=== PATIENT | male | born 1990 | race Caucasian/White ===

== ENCOUNTER 2017-10-23 22:46 | Emergency (ER) | payer SELFPAY ==
[~2017-10-23] VITALS: Ht 175.3 cm; Wt 55.2 kg
[2017-10-23 23:17] LABS: CHLORIDE 105 mEq/L (99-109); POTASSIUM 3.9 mEq/L (3.7-5.4); SODIUM 143 mEq/L (136-147)
[2017-10-23 23:19] LABS: GLUCOSE 109 mg/dL (70-99)
[2017-10-23 23:22] LABS: CREATININE 0.8 mg/dL (0.6-1.3); GFR ESTIMATE (CALCULATED) > 59 mL/min/ (58.99-99999)
[2017-10-23 23:23] LABS: UREA NITROGEN (BUN) 12 mg/dL (9-23)
[2017-10-23 23:42] LABS: ALBUMIN 4.4 g/dL (3.2-4.8)
[2017-10-23 23:45] LABS: TOTAL PROTEIN 7.7 g/dL (6.4-8.3)
[2017-10-23 23:46] LABS: TOTAL BILIRUBIN 0.3 mg/dL (0.0-1.0)
[2017-10-23 23:47] LABS: ALKALINE PHOSPHATASE 90 IU/L (3-129)
[2017-10-23 23:50] LABS: AST (GOT) 20 IU/L (2-34); DIRECT BILIRUBIN 0.1 mg/dL (0.0-0.3)
[2017-10-23 23:51] LABS: ALT (GPT) 10 IU/L (3-49); CREATINE KINASE 82 IU/L (1-294); LIPASE 32 U/L (1.0-51.0)
[2017-10-23 23:56] LABS: HEMATOCRIT 36.3 % (38.0-50.0); HEMOGLOBIN 12.5 G/DL (12.5-16.6); MCH 31.9 PG (29.0-34.0); MCHC 34.4 G/DL (30.0-36.0); MCV 92.6 FL (86-99); PLATELET COUNT 185 K/uL (156-360); RBC DIS.WIDTH-CV 11.9 % (11.8-14.6); RBC DIS.WIDTH-SD 40.5 % (39-53); RED BLOOD COUNT 3.92 M/uL (4.00-5.50)
[2017-10-23 23:57] LABS: WHITE BLOOD COUNT 1.1 K/uL (4.1-10.2)
[2017-10-24 01:49] LABS: HEMATOCRIT 34.3 % (38.0-50.0); HEMOGLOBIN 11.5 G/DL (12.5-16.6); MCH 30.8 PG (29.0-34.0); MCHC 33.5 G/DL (30.0-36.0); PLATELET COUNT 133 K/uL (156-360); RBC DIS.WIDTH-CV 11.9 % (11.8-14.6); RBC DIS.WIDTH-SD 40.1 % (39-53); RED BLOOD COUNT 3.73 M/uL (4.00-5.50)
[2017-10-24] MEDS ORDERED: MIRALAX255 GM PO (03:00)
[2017-10-24] MEDS ORDERED: FLEET ENEMA-AD118 ML PR (03:01)
[2017-10-24 03:04] LABS: ABS NEUTROPHIL COUNT 0.2; ATYPICAL LYMPHOCYTE 5.2 %; BAND NEUTROPHILS 5.1 % (0-8.0); EOSINOPHIL ABS CT 0; LYMPHOCYTES 63.9 % (15.0-45.0); METAMYELOCYTES 6.2 %; MYELOCYTES 2.1 %; PLATELET CLUMPS PRESENT - PLATELET COUNT APPEARS ADQ.; SEG.NEUTROPHILS 16.5 % (46.0-76.0); SMUDGE CELLS 2.1
[2017-10-24 03:30] VITALS: BP 99/66
[2017-10-24 03:46] LABS: APPEARANCE CLEAR ((CLEAR)); BILIRUBIN NEGATIVE; BLOOD NEGATIVE; COLOR YELLOW ((YELLOW)); GLUCOSE (STRIP) NEGATIVE; KETONES NEGATIVE; LEUKOCYTES NEGATIVE; NITRITE NEGATIVE; PROTEIN (STRIP) 30; SPECIFIC GRAVITY 1.015 (1.000-1.030); UCUL ADDED? NO
[2017-10-24 04:32] LABS: AMPHETAMINE NEGATIVE (500 ng/mL); BARBITURATES NEGATIVE (200 ng/mL); BENZODIAZEPINES PRESUMPTIVE POSITIVE (150 ng/mL); BUPRENORPHINE PRESUMPTIVE POSITIVE (10 ng/mL); COCAINE PRESUMPTIVE POSITIVE (150 ng/mL); METHADONE NEGATIVE (200 ng/mL); METHAMPHETAMINE NEGATIVE (500 ng/mL); OPIATES (MORPHINE) NEGATIVE (100 ng/mL); OXYCODONE NEGATIVE (100 ng/mL); PHENCYCLIDINE NEGATIVE (25 ng/mL); PROPOXYPHENE NEGATIVE (300 ng/mL); THC CANNABINOIDS NEGATIVE (50 ng/mL); TRICYCLIC ANTIDEPRESSANTS NEGATIVE (300 ng/mL)
[2017-10-24 05:00] LABS: BENZODIAZEPINES, URINE SCREEN POSITIVE (200 ng/mL)
[2017-10-24 08:33] LABS: ABS NEUTROPHIL COUNT 2.8; ATYPICAL LYMPHOCYTE 0.9 %; BAND NEUTROPHILS 22.6 % (0-8.0); EOSINOPHIL ABS CT 0; EOSINOPHILS 0.9 % (0-5.0); GIANT PLATELETS 2+; METAMYELOCYTES 0.9 %; PLATELET CLUMPS PRESENT - PLATELET COUNTS APPEARS DECREASED; TOX.VACUOLIZATION 3+; TOXIC GRANULATION 2+
== END 2017-10-24 03:41 | disposition home or self-care (01) ==
LOC: EME 22:46
PROVIDERS: Emergency Medicine
DX: K59.00 Constipation, unspecified (principal); F13.10 Sedative, hypnotic or anxiolytic abuse, uncomplicated; F14.10 Cocaine abuse, uncomplicated; I47.1 Supraventricular tachycardia; F17.200 Nicotine dependence, unspecified, uncomplicated
CPT/HCPCS: 74176; 80048; 80076; 81003; 82550; 83690; 84999; 85025; 85027; 99281; 99285; J2405; J7030; Q0169